=== PATIENT | male | born 1960 | race African-American/Black ===

== ENCOUNTER 2019-06-13 15:00 | Inpatient (IN) | payer MEDICARE, OTHER ==
[2019-07-24 22:00] VITALS: BP 101/53
[2019-07-24] MEDS ORDERED: APAP/Oxycodone 5/325mg Tab PO PRN (22:17)
[2019-07-24] MEDS ORDERED: Magnesium Hydroxide (MOM) 30 mL UDC PO PRN (22:47)
[2019-07-24] MEDS ORDERED: Maalox 30 mL Cup PO PRN (22:47)
[2019-07-25] MEDS: Multivitamin Tab PO SCH (08:23)
[2019-07-25] MEDS: APAP/Oxycodone 5/325mg Tab PO PRN (08:23)
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
[2019-07-26] MEDS: Multivitamin Tab PO SCH (09:14)
[2019-07-26] MEDS: APAP/Oxycodone 5/325mg Tab PO PRN (17:54)
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
[2019-07-27] MEDS: APAP/Oxycodone 5/325mg Tab PO PRN (07:57)
[2019-07-27] MEDS: Multivitamin Tab PO SCH (08:01)
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
[2019-07-28] MEDS: Multivitamin Tab PO SCH (08:27)
[2019-07-28] MEDS: APAP/Oxycodone 5/325mg Tab PO PRN (18:24)
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
[2019-07-29] MEDS: Multivitamin Tab PO SCH (09:44)
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
[2019-07-30] MEDS: Multivitamin Tab PO SCH (09:00)
--- NOTE | 2019-07-30 15:54 | Progress Notes ---
DATE: 07/30/2019 IDENTIFICATION: This is a 58-year-old male. SUBJECTIVE: The patient seen and examined. The patient is ambulatory. The patient is participating in physical therapy. The patient currently denies any chest pain, shortness of breath, palpitation, dizziness, nausea, vomiting, diarrhea. The patient is pretty much independent. PHYSICAL EXAMINATION: VITAL SIGNS: Temperature 98.6, pulse 74, respiratory rate 18, blood pressure 130/70. HEENT: Poor dentition. No facial asymmetry. NECK: Supple, no JVD. HEART: Regular. CHEST AND LUNGS: Equal in expansion, no expiratory wheezing. ABDOMEN: Soft. Bowel sounds are present. No palpable mass. EXTREMITIES: No edema. NEUROLOGIC: No gross neuro deficit noted. AVAILABLE DIAGNOSTIC DATA: None for my review. MAR is reviewed clinically. CLINICAL IMPRESSION: 1. Psychotic disorder. 2. Chronic kidney disease stage 3. 3. Anemia of chronic kidney disease. 4. History of substance abuse. 5. Psychotic disorder. 6. Homelessness. PLAN: 1. Psych medication and psych followup. 2. Follow up lab. 3. General nursing care. 4. Nutritional support. 5. Symptoms management. 6. Care plan reviewed and discussed with staff. JOB# [id number]
--- NOTE | 2019-07-30 23:52 | Psych Progress Note ---
Psych Progress Note - Intro Date of Progress Note: 07/29/19 - Assessment Assessment: Patient interviewed, case discussed with staff, the chart and records were reviewed. Per staff, patient remains impulsive and unpredictable. He remains disheveled, hair unkempt, hospital gown dirty, poor eye contact, internally pre- occupied. He has poor cooperation with interview, he appears suspicious of his environment. Remains mute during interview. He has no plan for self care remains mute throughout the interview. - Vitals, I&O Vitals: Vital Signs - 24 hr 07/30/19 17:59 Temp 99.1 F HR 103 RR 18 BP 111/67 O2 Sat % 99 - Objective Psych Objective: calm, psychomotor slowing, poor cooperation, selectively mute, disheveled appearing, malodorous, A&O x 2, insight is poor, JARETT SI/HI, +internally pre- occupied and paranoid. - Plan Plan: cont meds - Review of Relevant Data Review of Relevant Data: I have reviewed the following items and time coco (where applicable) has been applied. - Medications Current Medications: Current Medications Acetaminophen (Tylenol) 650 mg PO Q4HR PRN PRN Reason: Mild Pain (Scale 1-3) Stop: 09/22/19 22:46 Acetaminophen (Tylenol) 650 mg PO Q4H PRN PRN Reason: TEMP ABOVE 100 Stop: 09/23/19 08:15 Acetaminophen (Tylenol) 650 mg PO Q4H PRN PRN Reason: Moderate Pain (Scale 4-6) Stop: 09/23/19 08:17 Al Hydrox/Mg Hydrox/Simethicone (Maalox) 30 ml PO Q4HR PRN PRN Reason: GI DISTRESS Stop: 09/22/19 22:46 Divalproex Sodium (Depakote Dr) 500 mg PO BID [facility]; Protocol Stop: 09/24/19 16:59 Last Admin: 07/30/19 16:59 Dose: 500 mg Docusate Sodium (Colace) 100 mg PO DAILY [facility] Stop: 09/23/19 08:59 Last Admin: 07/30/19 09:00 Dose: 100 mg Lorazepam (Ativan) 0.5 mg PO Q4HR PRN; Protocol PRN Reason: Anxiety Stop: 08/23/19 23:50 Magnesium Hydroxide (Milk Of Magnesia) 30 ml PO HS PRN PRN Reason: Constipation Multivitamins/Vitamin C (Theragran) 1 tab PO DAILY [facility] Stop: 09/23/19 08:59 Last Admin: 07/30/19 09:00 Dose: 1 tab Oxycodone/Acetaminophen (Percocet 5/325mg Oral Tab) 1 tab PO Q4HR PRN PRN Reason: Severe Pain (Scale 7-10) Stop: 09/22/19 22:16 Last Admin: 07/28/19 18:24 Dose: 1 tab Risperidone (Risperdal) 1 mg PO BID [facility]; Protocol Stop: 09/23/19 16:59 Last Admin: 07/30/19 16:59 Dose: 1 mg Zolpidem Tartrate (Ambien) 5 mg PO HS PRN PRN Reason: Insomnia Stop: 09/22/19 23:51 Last Admin: 07/27/19 00:08 Dose: 5 mg
--- NOTE | 2019-07-30 23:54 | Psych Progress Note ---
Psych Progress Note - Intro Date of Progress Note: 07/30/19 - Assessment Assessment: Patient interviewed, case discussed with staff, the chart and records were reviewed. Per staff, patient remains impulsive and unpredictable. He is about the same from yesterday. He was seen in the interview room. He continues to remain disheveled appearing. we discussed showring and changing gown but he was not interested and appears paranoid of this provider. He remains disheveled , hair unkempt, hospital gown dirty, poor eye contact, internally pre-occupied. He has poor cooperation with interview, he appears suspicious of his environment. Remains mute during interview. He has no plan for self care remains mute throughout the interview. - Vitals, I&O Vitals: Vital Signs - 24 hr 07/30/19 17:59 Temp 99.1 F HR 103 RR 18 BP 111/67 O2 Sat % 99 - Objective Psych Objective: calm, psychomotor slowing, poor cooperation, selectively mute, disheveled appearing, malodorous, A&O x 2, insight is poor, JARETT SI/HI, +internally pre- occupied and paranoid. - Plan Plan: cont meds - Review of Relevant Data Review of Relevant Data: I have reviewed the following items and time coco (where applicable) has been applied. - Medications Current Medications: Current Medications Acetaminophen (Tylenol) 650 mg PO Q4HR PRN PRN Reason: Mild Pain (Scale 1-3) Stop: 09/22/19 22:46 Acetaminophen (Tylenol) 650 mg PO Q4H PRN PRN Reason: TEMP ABOVE 100 Stop: 09/23/19 08:15 Acetaminophen (Tylenol) 650 mg PO Q4H PRN PRN Reason: Moderate Pain (Scale 4-6) Stop: 09/23/19 08:17 Al Hydrox/Mg Hydrox/Simethicone (Maalox) 30 ml PO Q4HR PRN PRN Reason: GI DISTRESS Stop: 09/22/19 22:46 Divalproex Sodium (Depakote Dr) 500 mg PO BID [facility]; Protocol Stop: 09/24/19 16:59 Last Admin: 07/30/19 16:59 Dose: 500 mg Docusate Sodium (Colace) 100 mg PO DAILY [facility] Stop: 09/23/19 08:59 Last Admin: 07/30/19 09:00 Dose: 100 mg Lorazepam (Ativan) 0.5 mg PO Q4HR PRN; Protocol PRN Reason: Anxiety Stop: 08/23/19 23:50 Magnesium Hydroxide (Milk Of Magnesia) 30 ml PO HS PRN PRN Reason: Constipation Multivitamins/Vitamin C (Theragran) 1 tab PO DAILY [facility] Stop: 09/23/19 08:59 Last Admin: 07/30/19 09:00 Dose: 1 tab Oxycodone/Acetaminophen (Percocet 5/325mg Oral Tab) 1 tab PO Q4HR PRN PRN Reason: Severe Pain (Scale 7-10) Stop: 09/22/19 22:16 Last Admin: 07/28/19 18:24 Dose: 1 tab Risperidone (Risperdal) 1 mg PO BID [facility]; Protocol Stop: 09/23/19 16:59 Last Admin: 07/30/19 16:59 Dose: 1 mg Zolpidem Tartrate (Ambien) 5 mg PO HS PRN PRN Reason: Insomnia Stop: 09/22/19 23:51 Last Admin: 07/27/19 00:08 Dose: 5 mg
[2019-07-31] MEDS: Multivitamin Tab PO SCH (08:21)
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
[2019-08-01] MEDS: Multivitamin Tab PO SCH (08:44)
--- NOTE | 2019-08-01 10:27 | Progress Notes ---
DATE: PATIENT'S ID: A 58-year-old male. SUBJECTIVE: The patient seen and examined. The patient is lying in the bed, no new event. PHYSICAL EXAMINATION: VITAL SIGNS: Reviewed. HEENT: Poor dentition. NECK: Supple, no JVD. HEART: Regular. CHEST AND LUNGS: Equal in expansion, no expiratory wheezing. ABDOMEN: Soft. Bowel sounds are present. No palpable mass. EXTREMITIES: No edema. CLINICAL IMPRESSION: 1. Psychotic disorder. 2. Polysubstance abuse. 3. Degenerative joint disease. 4. Hypertension. 5. Chronic kidney disease 3. PLAN: 1. Psychiatric evaluation and management deferred to psychiatrist. 2. Monitor blood pressure, monitor behavior, medical symptoms management, and medication management. We will follow this patient during the stay in the hospital. JOB# [id number]
--- NOTE | 2019-08-01 10:44 | Diagnostic Imaging Report ---
Portable chest x-ray History: Cough, tuberculosis Allowing for portable technique the heart size is normal. No focal pulmonary parenchymal processes. No hilar or mediastinal abnormalities. Impression: No acute abnormalities. No radiographic evidence of tuberculosis.
--- NOTE | 2019-08-01 22:42 | Progress Notes ---
DATE: 08/01/2019 FOLLOWUP PROGRESS NOTE Case was discussed with staff of the patient, reviewed records. The patient is progressively better, sleeping better, eating better. He said that somebody is coming to interview him from the [facility] today. He denies any side effects with the medication, no sedation, no nausea and no extrapyramidal symptoms. Sleeping well, eating well. Still looking somewhat disheveled. He was able to shave 2 days ago. I will continue to work with the patient in group therapy, milieu therapy and adjust the medication as needed. JOB# [id number]
[2019-08-02] MEDS: Multivitamin Tab PO SCH (08:58)
--- NOTE | 2019-08-02 10:42 | Progress Notes ---
DATE: 08/02/2019 PATIENT'S ID: A 58-year-old male. SUBJECTIVE: The patient was seen and examined. The patient is lying in the bed. The patient has no new complaint. Chest x-ray was done, which is unremarkable. The patient is ambulatory. Disposition on the way. The patient currently denies any chest pain, shortness of breath, palpitation, dizziness, nausea, vomiting, or diarrhea. PHYSICAL EXAMINATION: VITAL SIGNS: Temperature 98, pulse is 74, respiratory rate 18, and blood pressure 130/60. HEENT: No facial asymmetry. NECK: Supple. No JVD. HEART: Regular. LUNGS: Clear to auscultate. ABDOMEN: Soft. Bowel sounds are present. No palpable mass. EXTREMITIES: No edema. NEUROLOGIC: Nonfocal. CLINICAL IMPRESSION: 1. Homelessness. 2. Psychotic disorder. 3. Polysubstance abuse. 4. Chronic kidney disease. 5. Hypertension. 6. Degenerative joint disease. PLAN: 1. Psych medication. 2. Psych followup. 3. Monitor blood pressure. 4. General nursing care. 5. Nutritional support. 6. Disposition as per psychiatrist. JOB# [id number]
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
--- NOTE | 2019-08-03 06:37 | Progress Notes ---
DATE: 08/03/2019 SUBJECTIVE: The patient was to have been discharged yesterday. There were some delays in his discharge. The patient remains angry, upset. Yells at me when I come in the room, but able to calm himself down. No agitation, just angry, upset. Currently on dosing of Risperdal. No side effects, refusing to speak with me. JOB# [id number]
[2019-08-03] MEDS: Multivitamin Tab PO SCH (08:24)
--- NOTE | 2019-08-04 06:30 | Progress Notes ---
DATE: 08/04/2019 SUBJECTIVE: The patient coming in from [facility], history of being on a hold, very angry, upset, telling me to "get out." Multiple prior admissions to the hospital, disheveled, unkempt. He was supposed to have left a few days prior. It is unclear why he remained in the hospital, some delays in his discharge. No behavioral outburst, likely at his baseline. Medications were noted. Vitals reviewed. JOB# [id number]
[2019-08-04] MEDS: Multivitamin Tab PO SCH (09:24)
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
[2019-08-05] MEDS: Multivitamin Tab PO SCH (09:32)
--- NOTE | 2019-08-05 14:49 | Progress Notes ---
DATE: 08/05/2019 SUBJECTIVE: Case was discussed with staff of the patient, reviewed records. The patient was supposed to have been discharged; however, apparently no place accepted him so far, he is sleeping better, eating better. No side effects with the medication, no sedation, no nausea, no extrapyramidal symptoms. He continues to look somewhat disheveled, disorganized; however, in general responding better to redirection. He continues to have anger outbursts, but in general easier to redirect. We will continue outpatient group therapy, milieu therapy, adjust medication as needed. JOB# [id number]
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
[2019-08-06] MEDS: Multivitamin Tab PO SCH (08:27)
--- NOTE | 2019-08-06 15:37 | Progress Notes ---
DATE: 08/06/2019 Case was discussed with staff of the patient, reviewed records. The patient is awaiting placement. He told me today that he think they accepted him. He will be leaving tomorrow. He is sleeping better, eating better. No suicidal ideation, no homicidal ideation, no paranoia. [place] somewhat disorganized, disheveled, but general no acting out behavior, sleeping better, eating better. We will continue outpatient group therapy, milieu therapy, adjust medication as needed. JOB# [id number]
[2019-08-07] MEDS: Multivitamin Tab PO SCH (08:11)
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
== END 2019-08-07 15:55 | disposition home or self-care (01) | DRG 885 ==
LOC: GERO 07-24 20:55
PROVIDERS: ADMIT Psychiatry & Neurology Psychiatry; ATTEND Psychiatry & Neurology Psychiatry
DX: F31.9 Bipolar disorder, unspecified (principal); N17.9 Acute kidney failure, unspecified; N18.3 Chronic kidney disease, stage 3 (moderate); F23 Brief psychotic disorder; M19.90 Unspecified osteoarthritis, unspecified site; F17.210 Nicotine dependence, cigarettes, uncomplicated; F10.10 Alcohol abuse, uncomplicated; F15.10 Other stimulant abuse, uncomplicated; Z59.0 Homelessness; Z79.899 Other long term (current) drug therapy
CPT/HCPCS: 71045-TC; 83036-90; G0410; Z7610